=== PATIENT | male | born 1970 | race Caucasian/White ===

== ENCOUNTER 2016-10-13 19:22 | Observation (INO) ==
[2016-10-13 23:15] LABS: Basophils # 0.1 K/mcL (0.0-0.2); Basophils % 1.4 %; Eosinophils # 0.3 K/mcL (0.0-0.6); Eosinophils % 3.9 %; Hematocrit 36.2 % (37.5-50.1); Hemoglobin 12.6 g/dL (12.9-16.9); Immature Granulocytes % 0.2 % (0-4); Lymphocytes # 1.8 K/mcL (0.6-4.6); Lymphocytes % 27.6 %; Mean Corpuscular HGB Conc 34.8 g/dL (31.6-35.5); Mean Corpuscular Hemoglobin 30.4 pg (28.0-33.3); Mean Corpuscular Volume 87.4 fL (83.0-100.0); Mean Platelet Volume 10.7 fL (9.4-12.4); Monocytes # 0.8 K/mcL (0.0-1.3); Monocytes % 12.3 %; Neutrophils # 3.5 K/mcL (1.6-8.9); Platelet Count 130 K/mcL (140-400); Red Blood Count 4.14 M/mcL (4.19-5.50); Red Cell Distribution Width 14.4 % (11.5-14.5); Segmented Neutrophils % 54.6 %
[2016-10-13 23:16] LABS: VBG HCO3 30.6 mEq/L (21-27); VBG PH 7.37 pH Units (7.32-7.42)
[2016-10-13 23:25] LABS: Bilirubin,Urine Negative (Negative); Blood,Urine Negative (Negative); Clarity,Urine Clear (Clear); Color,Urine Yellow (Yellow); Glucose,Urine (UA) >=1000 mg/dL (Normal); Ketones,Urine Negative (Negative); Leukocyte Esterase,Urine Negative (Negative); Nitrite,Urine Negative (Negative); Protein,Urine Negative (Neg-Trace); Specific Gravity,Urine > 1.030 (1.010-1.025); Urobilinogen,Urine Normal (Normal)
[2016-10-13] MEDS ORDERED: 0.9 % Sodium Chloride 1,000 ML IVC ONE (23:25)
[2016-10-13 23:29] LABS: Albumin 3.7 g/dL (3.5-5.0); Albumin/Globulin Ratio 0.9 (1.1-2.2); Bilirubin,Total 1.2 mg/dL (0.2-1.2); Calcium 9.8 mg/dL (8.6-10.8); Globulin 4.1 g/dL (2.4-3.5); Potassium 4.2 mEq/L (3.5-4.5); Total Protein 7.8 g/dL (6.0-8.3)
--- NOTE | 2016-10-13 23:47 | Emergency Department Note ---
Disposition Clinical Impression: Hyperammonemia, Hyperglycemia Altered mental status Qualifiers: Altered mental status type: unspecified Qualified Code(s): R41.82 - Altered mental status, unspecified Disposition: Admitted As Inpatient Condition: Fair Time of Disposition: 01:04 General Adult HPI - General Chief complaint: ED General Medical Stated complaint: blood glucose high Time Seen by Provider: 10/13/16 22:31 Source: patient Mode of arrival: ambulatory Limitations: no limitations Nursing Notes Reviewed: Yes Vital Signs Reviewed: Yes - History of Present Illness HPI Narrative: Patient is a 46-year-old male with past medical history of hepatitis B, insulin dependent diabetes, hypertension, hyperlipidemia. He presents today due to multiple complaints. He has confusion that has progressively gotten worse over the past couple weeks. He also complains of new onset of blurred vision today. He also has complaints of high blood sugar readings at home over 500. Denies any chest pain, shortness of breath, numbness, tingling, weakness, belly pain. Denies any increased abdominal girth or lower extremity edema. Pain Scale: 5 - Related Data Home Medications Medication Instructions Recorded Confirmed Aripiprazole [Abilify] 2.5 mg PO DAILY 09/09/15 07/04/16 Atorvastatin Calcium [Lipitor] 20 mg PO HS 09/09/15 07/04/16 Cyclobenzaprine [Flexeril] 10 mg PO HS 09/09/15 07/04/16 EPINEPHrine [Epipen JR] 0.15 mg IJ ONCE PRN 09/09/15 10/14/16 Esomeprazole Magnesium [Nexium] 40 mg PO DAILY 09/09/15 07/04/16 Ketoconazole Shampoo [Nizoral 1 appl TP DAILY 09/09/15 07/04/16 Shampoo] LORazepam [Ativan] 1 mg PO HS 09/09/15 07/04/16 Levomilnacipran HCl [Fetzima] 120 mg PO HS 09/09/15 10/14/16 Metoprolol [Lopressor] 25 mg PO BID 09/09/15 07/04/16 Olmesartan Medoxomil [Benicar] 10 mg PO DAILY 09/09/15 07/04/16 Potassium Chloride [Klor-Con 20 meq PO BID 09/09/15 07/04/16 Sprinkle] Ropinirole HCl [Requip] 1 mg PO HS 09/09/15 07/04/16 SUMAtriptan [Imitrex] 50 mg PO DAILY PRN 09/09/15 07/04/16 Sennosides [Senna] 8.6 mg PO QID 09/09/15 07/04/16 Tamsulosin [Flomax] 0.4 mg PO HS 09/09/15 07/04/16 Testosterone Cypionate 200 mg IM 2XW 09/09/15 10/14/16 [Depo-Testosterone] Topiramate [Topamax] 50 mg PO BID 09/09/15 10/14/16 Cholecalciferol (D-3) [Vitamin D] 5,000 unit PO DAILY 06/11/16 07/04/16 Metformin HCl [Metformin HCl ER] 1,000 mg PO BID 06/11/16 07/04/16 Multivitamin [Multivitamins] 1 each PO DAILY 06/11/16 07/04/16 Sitagliptin Phosphate [Januvia] 50 mg PO DAILY 06/11/16 07/04/16 Morphine Sulfate 30 mg PO TID 07/04/16 07/04/16 Docusate [Colace] 100 mg PO PRN PRN 10/14/16 10/14/16 Insulin LISPRO [HumaLOG] 10 units SQ TIDWM 10/14/16 10/14/16 Lactulose 10 gm PO BID 10/14/16 10/14/16 Tamsulosin [Flomax] 0.4 mg PO DAILY 10/14/16 10/14/16 Tenofovir Disoproxil Fumarate 300 mg PO DAILY 10/14/16 10/14/16 [Viread] Previous Rx's Medication Instructions Recorded Insulin Glargine [Lantus] 25 unit SQ DAILY #1 vial 06/09/16 Allergies Allergy/AdvReac Type Severity Reaction Status Date / Time haloperidol [From Haldol] AdvReac Anxiety Verified 10/13/16 19:24 pregabalin [From Lyrica] AdvReac See Verified 10/13/16 19:24 Comments All systems ED: reviewed and negative except as stated. Past Medical History - Past Medical History Attestation: Yes The following information was validated with the patient. Medical history: Reports: arthritis, diabetes, GERD, hyperlipidemia, hypertension, migraine, osteoporosis, other Surgical history: Reports: orthopedic, other, other Psychiatric history: Reports: anxiety, depression, panic disorder - Social History Smoking Status: Unknown if ever smoked Smokeless Tobacco Status: No Alcohol use: Reports: rarely Drug use: Reports: none Physical Exam - General Limitations: no limitations General appearance: alert, in no apparent distress, other (Mildly confused on exam) - Head Head exam: atraumatic, normocephalic, normal inspection - Eye Eye exam: Present: normal appearance, PERRL, EOMI - ENT ENT exam: normal exam, normal oropharynx, mucous membranes moist - Neck Neck exam: Present: normal inspection, full ROM, trachea midline - Chest Chest inspection: Present: normal inspection, symmetric chest wall rise - Respiratory Respiratory exam: Present: normal lung sounds bilaterally - Cardiovascular Cardiovascular exam: Present: normal rhythm, tachycardia, normal heart sounds - Abdominal Exam Abdominal exam: Present: soft, Non-Tender, distention (mild distention). Absent : tenderness, guarding, rebound, rigidity - Extremities Exam Extremities exam: Present: normal inspection, full ROM. Absent: tenderness, pedal edema - Back Exam Back exam: Present: normal inspection, full ROM. Absent: tenderness - Neurological Exam Neurological exam: Present: alert, oriented X3, CN II-XII intact. Absent: motor sensory deficit - Psychiatric Psychiatric exam: Present: normal mood, flat affect - Skin Skin exam: Present: warm, dry, intact, normal color Course Course Narrative: Mildly hypertensive and mildly tachycardic on presentation. The rest of the vitals were within normal limits. Blood sugar here is in the 500s. Multiple concerns at this point. Patient is on lactulose at home for high ammonia levels. He could have hyperammonemia which is causing some of his symptoms. Blood sugar being high could also cause him to be confused and have blurred vision. Also any intracranial abnormality could be causing confusion and blurred vision with a new onset just to arrival. We will obtain DKA workup, ammonia levels, basic labs, CT head. Fluids started. 00:[address] negative. labs show hyperammonemia, hyperglycemia. Normal potassium. Patient is not acidotic. Concern for altered mental status due to hypoglycemia and hyperammonemia. We will admit the patient for further care. Patient has been given 1 L normal saline and 10 units of insulin. We will continue to monitor insulin and give more fluids. Gave lactulose for hyperammonemia Head CT 10/13/16 23:44 IMPRESSION: No acute intracranial abnormality. D/ / Himanshu Kraus MD / Himanshu Kraus MD Interpreting Provider: Himanshu Kraus MD Vital Signs Temperature 97.9 F 10/13/16 19:24 Pulse Rate 108 10/13/16 19:24 Respiratory Rate 18 10/13/16 19:24 Blood Pressure 155/92 10/13/16 19:24 O2 Sat by Pulse Oximetry 96 10/13/16 19:24 Temperature 98.2 F 10/14/16 02:11 Pulse Rate 98 10/14/16 02:11 Respiratory Rate 16 10/14/16 02:11 Blood Pressure 135/78 10/14/16 02:11 O2 Sat by Pulse Oximetry 95 10/14/16 02:11 Oxygen Delivery Oxygen Delivery Room Air Medical Decision Making - MDM Narrative Medical decision making narrative: Mildly hypertensive and mildly tachycardic on presentation. The rest of the vitals were within normal limits. Blood sugar here is in the 500s. Multiple concerns at this point. Patient is on lactulose at home for high ammonia levels. He could have hyperammonemia which is causing some of his symptoms. Blood sugar being high could also cause him to be confused and have blurred vision. Also any intracranial abnormality could be causing confusion and blurred vision with a new onset just to arrival. We will obtain DKA workup, ammonia levels, basic labs, CT head. Fluids started. 00:[address] negative. labs show hyperammonemia, hyperglycemia. Normal potassium. Patient is not acidotic. Concern for altered mental status due to hypoglycemia and hyperammonemia. We will admit the patient for further care. Patient has been given 1 L normal saline and 10 units of insulin. We will continue to monitor insulin and give more fluids. Gave lactulose for hyperammonemia - Medical Records Medical records reviewed: Yes I reviewed the patient's medical records. - Lab Data Lab results reviewed: Yes I reviewed the patient's lab results. Result diagrams: 10/13/16 23:05 10/13/16 23:05 Lab Results 10/13/16 10/13/16 10/13/16 Range/Units 19:28 19:29 23:05 WBC 6.3 (4.3-11.1) K/mcL RBC 4.14 L (4.19-5.50) M/mcL Hgb 12.6 L (12.9-16.9) g/dL Hct 36.2 L (37.5-50.1) % MCV 87.4 (83.0-100.0) fL MCH 30.4 (28.0-33.3) pg MCHC 34.8 (31.6-35.5) g/dL RDW 14.4 (11.5-14.5) % Plt Count 130 L (140-400) K/mcL MPV 10.7 (9.4-12.4) fL Immature Gran % 0.2 (0-4) % Seg Neutrophils % 54.6 % Lymphocytes % 27.6 % Monocytes % 12.3 % Eosinophils % 3.9 % Basophils % 1.4 % Neutrophils # 3.5 (1.6-8.9) K/mcL Lymphocytes # 1.8 (0.6-4.6) K/mcL Monocytes # 0.8 (0.0-1.3) K/mcL Eosinophils # 0.3 (0.0-0.6) K/mcL Basophils # 0.1 (0.0-0.2) K/mcL VBG pH (7.32-7.42) pH Units VBG pCO2 (41-51) mmHg VBG pO2 (25-40) mmHg VBG HCO3 (21-27) mEq/L Sodium (136-145) mEq/L Potassium (3.5-4.5) mEq/L Chloride (98-109) mEq/L Carbon Dioxide (19-29) mEq/L BUN (8-26) mg/dL Creatinine (0.72-1.25) mg/dL Est GFR ( Amer) (> 60) Est GFR (Non-Af Amer) (> 60) BUN/Creatinine Ratio (6-26) Glucose (70-99) mg/dL POC Glucose 495 H* 504 H* (58-89) Calculated Osmolality (280-300) Lactic Acid (0.5-2.2) mmol/L Calcium (8.6-10.8) mg/dL Total Bilirubin (0.2-1.2) mg/dL AST (5-34) Units/L ALT (0-55) Units/L Alkaline Phosphatase (38-126) Units/L Ammonia (18-72) mcmol/L Serum Total Protein (6.0-8.3) g/dL Albumin (3.5-5.0) g/dL Globulin (2.4-3.5) g/dL Albumin/Globulin Ratio (1.1-2.2) Beta-Hydroxybutyric Acd (0.02-0.27) mmol/L Urine Color (Yellow) Urine Clarity (Clear) Urine pH (5.0-8.0) pH Units Ur Specific [place] (1.010-1.025) Urine Protein (Neg-Trace) mg/dL Urine Glucose (UA) (Normal) mg/dL Urine Ketones (Negative) mg/dL Urine Blood (Negative) Urine Nitrite (Negative) Urine Bilirubin (Negative) Urine Urobilinogen (Normal) mg/dL Ur Leukocyte Esterase (Negative) Ur Culture Indicated? (NO) 10/13/16 10/13/16 10/13/16 Range/Units 23:05 23:05 23:05 WBC (4.3-11.1) K/mcL RBC (4.19-5.50) M/mcL Hgb (12.9-16.9) g/dL Hct (37.5-50.1) % MCV (83.0-100.0) fL MCH (28.0-33.3) pg MCHC (31.6-35.5) g/dL RDW (11.5-14.5) % Plt Count (140-400) K/mcL MPV (9.4-12.4) fL Immature Gran % (0-4) % Seg Neutrophils % % Lymphocytes % % Monocytes % % Eosinophils % % Basophils % % Neutrophils # (1.6-8.9) K/mcL Lymphocytes # (0.6-4.6) K/mcL Monocytes # (0.0-1.3) K/mcL Eosinophils # (0.0-0.6) K/mcL Basophils # (0.0-0.2) K/mcL VBG pH 7.37 (7.32-7.42) pH Units VBG pCO2 53 H (41-51) mmHg VBG pO2 45 H (25-40) mmHg VBG HCO3 30.6 H (21-27) mEq/L Sodium 135 L (136-145) mEq/L Potassium 4.2 (3.5-4.5) mEq/L Chloride 98 (98-109) mEq/L Carbon Dioxide 25 (19-29) mEq/L BUN 17 (8-26) mg/dL Creatinine 1.66 H (0.72-1.25) mg/dL Est GFR ( Amer) 54 L (> 60) Est GFR (Non-Af Amer) 44 L (> 60) BUN/Creatinine Ratio 10 (6-26) Glucose 525 H* (70-99) mg/dL POC Glucose (58-89) Calculated Osmolality 305 H (280-300) Lactic Acid 2.1 (0.5-2.2) mmol/L Calcium 9.8 (8.6-10.8) mg/dL Total Bilirubin 1.2 (0.2-1.2) mg/dL AST 52 H (5-34) Units/L ALT 91 H (0-55) Units/L Alkaline Phosphatase 196 H (38-126) Units/L Ammonia (18-72) mcmol/L Serum Total Protein 7.8 (6.0-8.3) g/dL Albumin 3.7 (3.5-5.0) g/dL Globulin 4.1 H (2.4-3.5) g/dL Albumin/Globulin Ratio 0.9 L (1.1-2.2) Beta-Hydroxybutyric Acd (0.02-0.27) mmol/L Urine Color (Yellow) Urine Clarity (Clear) Urine pH (5.0-8.0) pH Units Ur Specific [place] (1.010-1.025) Urine Protein (Neg-Trace) mg/dL Urine Glucose (UA) (Normal) mg/dL Urine Ketones (Negative) mg/dL Urine Blood (Negative) Urine Nitrite (Negative) Urine Bilirubin (Negative) Urine Urobilinogen (Normal) mg/dL Ur Leukocyte Esterase (Negative) Ur Culture Indicated? (NO) 10/13/16 10/13/16 10/13/16 Range/Units 23:05 23:15 23:44 WBC (4.3-11.1) K/mcL RBC (4.19-5.50) M/mcL Hgb (12.9-16.9) g/dL Hct (37.5-50.1) % MCV (83.0-100.0) fL MCH (28.0-33.3) pg MCHC (31.6-35.5) g/dL RDW (11.5-14.5) % Plt Count (140-400) K/mcL MPV (9.4-12.4) fL Immature Gran % (0-4) % Seg Neutrophils % % Lymphocytes % % Monocytes % % Eosinophils % % Basophils % % Neutrophils # (1.6-8.9) K/mcL Lymphocytes # (0.6-4.6) K/mcL Monocytes # (0.0-1.3) K/mcL Eosinophils # (0.0-0.6) K/mcL Basophils # (0.0-0.2) K/mcL VBG pH (7.32-7.42) pH Units VBG pCO2 (41-51) mmHg VBG pO2 (25-40) mmHg VBG HCO3 (21-27) mEq/L Sodium (136-145) mEq/L Potassium (3.5-4.5) mEq/L Chloride (98-109) mEq/L Carbon Dioxide (19-29) mEq/L BUN (8-26) mg/dL Creatinine (0.72-1.25) mg/dL Est GFR ( Amer) (> 60) Est GFR (Non-Af Amer) (> 60) BUN/Creatinine Ratio (6-26) Glucose (70-99) mg/dL POC Glucose (58-89) Calculated Osmolality (280-300) Lactic Acid (0.5-2.2) mmol/L Calcium (8.6-10.8) mg/dL Total Bilirubin (0.2-1.2) mg/dL AST (5-34) Units/L ALT (0-55) Units/L Alkaline Phosphatase (38-126) Units/L Ammonia 102 H (18-72) mcmol/L Serum Total Protein (6.0-8.3) g/dL Albumin (3.5-5.0) g/dL Globulin (2.4-3.5) g/dL Albumin/Globulin Ratio (1.1-2.2) Beta-Hydroxybutyric Acd 0.36 H (0.02-0.27) mmol/L Urine Color Yellow (Yellow) Urine Clarity Clear (Clear) Urine pH 6.0 (5.0-8.0) pH Units Ur Specific [place] > 1.030 H (1.010-1.025) Urine Protein Negative (Neg-Trace) mg/dL Urine Glucose (UA) >=1000 H (Normal) mg/dL Urine Ketones Negative (Negative) mg/dL Urine Blood Negative (Negative) Urine Nitrite Negative (Negative) Urine Bilirubin Negative (Negative) Urine Urobilinogen Normal (Normal) mg/dL Ur Leukocyte Esterase Negative (Negative) Ur Culture Indicated? NO (NO) - Radiology Data Radiology results reviewed: Yes I reviewed the patient's radiology results. Head CT 10/13/16 23:44 IMPRESSION: No acute intracranial abnormality. D/ / Himanshu Kraus MD / Himanshu Kraus MD Interpreting Provider: Himanshu Kraus MD S.B.AMayda - S.PamAMayda Situation: Demographics, MOA Background: Presenting Complaint, Relevant PMH, Meds, & Allergies Assessment: Vital Signs, Course and respsone to treatment, Exam Concerns, Patient/Family Expectation, Pertinant Lab Results, Outstanding Labs Recommendation: Barrier(s) to disposition, Recommendation based on pending studies, treatments, or consults S.[email or web address].RRiley Report Given to: Dr. Shoshana AbrahamBBishop Repor Time: 01:05 Attestation Statement - Attestation Attestation: Dr. Hogan note: Patient seen in conjunction with resident Dr. Zarate; please see his chart for complete documentation. I spent [id number] time with the patient and I agree with the patient's treatment and disposition. Patient had improvement of his mental status prior to admission after IV fluids. Poorly controlled diabetic with an elevated ammonia noted earlier today as an outpatient. To rule out symptomatic to go home at this time but improved at the time of admission. Ammonia level has been reviewed in the er
[2016-10-14] MEDS ORDERED: Insulin Human Regular 10 UNIT in 0.9 % Sodium Chloride 10 ML IV ONE (00:54)
[2016-10-14] MEDS ORDERED: 0.9 % Sodium Chloride 1,000 ML IVC ONE (00:57)
[2016-10-14] MEDS ORDERED: Lactulose Oral Soln 20 GM/30 ML UDC PO ONE (01:01)
[2016-10-14] MEDS ORDERED: Dextrose Gel 15 GM PO PRN ×6 (06:25→10:09)
[2016-10-14] MEDS ORDERED: D5% in Water 1,000 ML IV PRN ×3 (06:25→10:09)
[2016-10-14] MEDS ORDERED: *HR* Dextrose 50 % in Water (Syg) 50 ML SYRINGE IVP PRN ×3 (06:25→10:09)
[2016-10-14] MEDS ORDERED: 0.9 % Sodium Chloride 1,000 ML IVC SCH (06:30)
[2016-10-14 07:09] LABS: Alanine Aminotransferase 79 Units/L (0-55); Albumin 3.1 g/dL (3.5-5.0); Albumin/Globulin Ratio 0.9 (1.1-2.2); Alkaline Phosphatase 179 Units/L (38-126); Aspartate Amino Transferase 46 Units/L (5-34); BUN/Creatinine Ratio 12 (6-26); Blood Urea Nitrogen 15 mg/dL (8-26); Calcium 9.1 mg/dL (8.6-10.8); Carbon Dioxide 23 mEq/L (19-29); Chloride 104 mEq/L (98-109); Globulin 3.6 g/dL (2.4-3.5); Glucose 383 mg/dL (70-99); Magnesium 1.1 mg/dL (1.6-2.6); Osmolality,Calculated 303 (280-300); Potassium 3.7 mEq/L (3.5-4.5); Sodium 138 mEq/L (136-145); Total Protein 6.7 g/dL (6.0-8.3); eGFR For African Americans > 60 (> 60); eGFR For Non-African Americans 59 (> 60)
[2016-10-14] MEDS: Insulin LISPRO 300 UNITS/3 ML VIAL SQ SCH ×3 (08:08→16:31)
[2016-10-14] MEDS: Lactulose Oral Soln 20 GM/30 ML UDC PO SCH ×4 (08:09→21:01)
[2016-10-14] MEDS ORDERED: Acetaminophen 325 MG TABLET PO PRN (10:05)
[2016-10-14] MEDS ORDERED: Ondansetron 4 MG/2 ML VIAL IVP PRN (10:05)
[2016-10-14] MEDS ORDERED: Naloxone 0.4 MG/ML INJ IVP PRN (10:05)
--- NOTE | 2016-10-14 10:13 | Internal Med History&Physical ---
Date of Encounter: 10/14/16 Time of Encounter: 10:12 Assessment and Plan (1) Hypomagnesemia Current visit: Yes Status: Acute Likely related to diuretic use and poor oral intake. Supplement with oral magnesium oxide and IV magnesium sulfate, recheck serum magnesium in a.m. (2) Acute kidney injury Current visit: Yes Status: Acute Likely related to hyperglycemia and dehydration. Continue IV hydration, serum creatinine noted to be improving. Continue to monitor. 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 Patient had liver biopsy done, confirming cirrhosis a few months back. Continue scheduled lactulose for at least 2-3 soft bowel movements per day. Mental status noted to be improving. (4) Hyperglycemia Current visit: Yes Status: Acute Unclear etiology. Monitor blood sugars closely and continue Accu-Chek blood glucose monitoring every 4 hours for now. Continue basal bolus insulin regimen. Diabetic diet. Check hemoglobin A1c. (5) Cirrhosis Current visit: Yes Status: Chronic Qualifiers: Hepatic cirrhosis type: unspecified hepatic cirrhosis Ascites presence: without ascites Qualified Code(s): K74.60 - Unspecified cirrhosis of liver (6) Diabetes mellitus Current visit: Yes Status: Chronic Plan as above. Qualifiers: Diabetes mellitus type: type 2 Diabetes mellitus complication status: with hyperglycemia Diabetes mellitus fci insulin use: with fci use Qualified Code(s): E11.65 - Type 2 diabetes mellitus with hyperglycemia; Z79.4 - detention (current) use of insulin (7) Hepatitis B Current visit: Yes Status: Chronic continue Viread; follows with GI as outpatient; Qualifiers: Viral hepatitis chronicity: chronic Hepatic coma status: without hepatic coma Hepatitis delta agent presence: without delta-agent Qualified Code(s): B18.1 - Chronic viral hepatitis B without delta-agent (8) Hypertension Current visit: Yes Status: Chronic Qualifiers: Hypertension type: essential hypertension Qualified Code(s): I10 - Essential (primary) hypertension (9) Obesity (BMI 30-39.9) Current visit: Yes Status: Chronic Internal Medicine - H&P: HPI Chief complaint: Confusion, blurred vision Admitted From: Emergency Dept Plans for Post Hospital Care: Home History of present illness: Mr. Garner is a 46 year old male with history of diabetes, hepatitis B, cirrhosis was brought in by family with complaints of confusion and blurred vision. Patient has had a similar admission about 3 months back at our facility with uncontrolled blood sugars. He is noted to be alert and oriented at this time and is able to provide history, although he seems to be depressed and anxious. Patient reports being compliant to his home dose of insulin with no recent dietary changes but reports that his blood sugars have been increasing for the last 7-10 days. Patient has blood sugar log with him, which shows that his sugars have been uncontrolled in June 2016 when he was hospitalized with confusion and hyperglycemia, and discharged with recommendations to use his Lantus regularly and to adjust it according to his blood sugars. He has been doing this and his sugars were better controlled subsequent to the hospitalization, however for the last 2 weeks blood sugars are constantly in high 200s to high 300s with occasional 400-500. Patient reports that he is getting more forgetful, confused and disoriented for the last few days associated with blurred vision and not feeling well. Denies nausea, vomiting, diarrhea, chest pain or shortness of breath. No focal weakness or paresthesias reported. No fever or chills, no recent respiratory or urinary tract infections, no recent antibiotic use. Past Med Surg Social Fam HX - Past Medical History Medical history: arthritis, cirrhosis (Hepatitis B), diabetes, GERD, hyperlipidemia, hypertension, migraine, osteoporosis, other Psychiatric history: anxiety, depression, panic disorder - Past Surgical History Surgical History: cholecystectomy, orthopedic, other, other (Cervical and lumbar spinal surgeries) - Social History Smoking Status: Former smoker Smokeless Tobacco Status: No Alcohol use: occasionally Drug use: none Occupational status: disabled Current living situation: Home, With Family Activity Level: Independent ambulation Recent Out of Country Travel Within the Last 8 Weeks: No Exposure or Possible Exposure to Illness During Travel: No - Family History Mother Living Status: Still Living Hx Family Endocrine Disorder: Yes Father Living Status: Still Living Hx Family Cancer: Yes (lymphoma) Internal Medicine - H&P: Meds Aripiprazole [Abilify] 2.5 mg PO DAILY 09/09/15 [History] Atorvastatin Calcium [Lipitor] 20 mg PO HS 09/09/15 [History] Cyclobenzaprine [Flexeril] 10 mg PO HS 09/09/15 [History] EPINEPHrine [Epipen JR] 0.15 mg IJ ONCE PRN 09/09/15 [History] Esomeprazole Magnesium [Nexium] 40 mg PO DAILY 09/09/15 [History] Ketoconazole Shampoo [Nizoral Shampoo] 1 appl TP DAILY 09/09/15 [History] LORazepam [Ativan] 1 mg PO HS 09/09/15 [History] Levomilnacipran HCl [Fetzima] 120 mg PO HS 09/09/15 [History] Olmesartan Medoxomil [Benicar] 10 mg PO DAILY 09/09/15 [History] Potassium Chloride [Klor-Con Sprinkle] 20 meq PO BID 09/09/15 [History] Ropinirole HCl [Requip] 1 mg PO HS 09/09/15 [History] SUMAtriptan [Imitrex] 50 mg PO DAILY PRN 09/09/15 [History] Sennosides [Senna] 8.6 mg PO QID 09/09/15 [History] Testosterone Cypionate [Depo-Testosterone] 200 mg IM Q2W 09/09/15 [History] Topiramate [Topamax] 50 mg PO BID 09/09/15 [History] Cholecalciferol (D-3) [Vitamin D] 5,000 unit PO DAILY 06/11/16 [History] Multivitamin [Multivitamins] 1 each PO DAILY 06/11/16 [History] Sitagliptin Phosphate [Januvia] 50 mg PO DAILY 06/11/16 [History] Morphine Sulfate 30 mg PO TID 07/04/16 [History] Docusate [Colace] 100 mg PO PRN PRN 10/14/16 [History] Insulin Glargine [Lantus] 25 unit SQ HS 10/14/16 [History] Insulin LISPRO [HumaLOG] 0 units SQ TIDWM 10/14/16 [History] Lactulose 10 gm PO BID 10/14/16 [History] Metoprolol XL (24 HR) Succ [Toprol XL] 25 mg PO BID 10/14/16 [History] Tamsulosin [Flomax] 0.4 mg PO DAILY 10/14/16 [History] Tenofovir Disoproxil Fumarate [Viread] 300 mg PO DAILY 10/14/16 [History] Allergies haloperidol [From Haldol] Adverse Reaction (Verified 10/13/16 19:24) Anxiety Panick attacks. pregabalin [From Lyrica] Adverse Reaction (Verified 10/13/16 19:24) See Comments Lowered kidney function. All Systems PM: A 10-system review of systems was performed and is negative for pertinent findings except as documented above in the HPI. - Constitutional Constitutional: malaise, no chills, no fever(s), no night sweats - EENT Eyes: blurry vision, change in vision Ears: no ear discharge, no ear pain, no tinnitus Nose, mouth and throat: no dysphagia, no nasal discharge, no neck pain, no sore throat - Cardiovascular Cardiovascular ROS IM: lightheadedness, no chest pain, no diaphoresis, no dyspnea, no palpitations, no syncope - Respiratory Respiratory: no cough, no dyspnea, no wheezing, no excessive phlegm production - Gastrointestinal Gastrointestinal: no abdominal pain, no diarrhea, no hematemesis, no hematochezia, no melena, no nausea, no vomiting - Musculoskeletal Musculoskeletal ROS IM: no numbness, no tingling - Integumentary Integumentary IM: no rash, no unusual bruising - Neurological Neurological ROS: confusion, no convulsions, no focal weakness, no numbness, no tingling, no tremor(s) - Hematologic/Lymphatic Hematologic/Lymphatic: no easy bruising - Constitutional Vitals: Temp Pulse Resp BP Pulse Ox 98 F 97 14 131/77 92 L 10/14/16 07:13 10/14/16 08:15 10/14/16 07:13 10/14/16 07:13 10/14/16 07:13 General appearance: Present: A&O X 3, answers questions appropriately - Head Head exam: Present: atraumatic, normocephalic - Neck Neck exam general surgery: Present: supple, trachea midline. Absent: lymphadenopathy - Respiratory Respiratory exam: Present: CTAB. Absent: accessory muscle use, rales, rhonchi, wheezes - Cardiovascular Cardiovascular exam: Present: RRR, +S1, +S2, tachycardia. Absent: diastolic murmur, gallop, rubs, systolic murmur - GI/Abdominal GI/Abdominal exam: Present: normal bowel sounds, soft, no peritoneal signs. Absent: distended, tenderness - Extremities Exam Extremities exam: Present: full ROM, warm, radial pulses palpable and symetrical. Absent: calf tenderness, cyanotic, pedal edema - Neurological Exam Neurological exam: Present: CN II-XII intact, oriented X3, no focal deficits. Absent: pronater drift, facial droop, speech deficit - Psychiatric Psychiatric exam: Present: anxious - Skin Skin exam: Present: dry, intact Internal Med - H&P Results - Labs CBC & Chem 7: 10/13/16 23:05 10/14/16 06:43 Labs: BMP 10/14/16 06:43 Sodium 138 Potassium 3.7 Chloride 104 Carbon Dioxide 23 BUN 15 Creatinine 1.30 H Glucose 383 H Calcium 9.1 Liver Function 10/14/16 Range/Units 06:43 Total Bilirubin 1.0 (0.2-1.2) mg/dL AST 46 H (5-34) Units/L ALT 79 H (0-55) Units/L Alkaline Phosphatase 179 H (38-126) Units/L Albumin 3.1 L (3.5-5.0) g/dL
[2016-10-14] MEDS: 0.9 % Sodium Chloride 1,000 ML IVC SCH ×2 (10:53→21:03)
[2016-10-14 11:09] LABS: Hemoglobin A1C 10.7 %
[2016-10-14] MEDS ORDERED: Insulin DETEMIR 100 UNIT/ML X5UNITS SQ ONE (12:05)
[2016-10-14] MEDS: *HR* Morphine Sulfate SR (12 HR) 30 MG TABLET.ER PO SCH ×2 (13:51→21:01)
[2016-10-14] MEDS ORDERED: *HR* Morphine Sulfate SR (12 HR) 30 MG TABLET.ER PO SCH (16:00)
[2016-10-14] MEDS ORDERED: Magnesium Sulfate 2 GM in D5% in Water 100 ML IVPB ONE (17:36)
[2016-10-14] MEDS ORDERED: (Levomilnacipran Hcl [Fetzima] 120 MG) PO SCH (21:00)
[2016-10-14] MEDS ORDERED: Insulin LISPRO 300 UNITS/3 ML VIAL SQ SCH ×2 (21:00)
[2016-10-14] MEDS ORDERED: *HR* LORazepam 1 MG TABLET PO SCH (21:00)
[2016-10-14] MEDS ORDERED: rOPINIRole 1 MG TABLET PO SCH (21:00)
[2016-10-14] MEDS: Topiramate 25 MG TABLET PO SCH (21:01)
[2016-10-14] MEDS: Magnesium Oxide 400 MG TABLET PO SCH (21:02)
[2016-10-14] MEDS: Insulin DETEMIR 100 UNIT/ML X5UNITS SQ SCH (21:30)
[2016-10-15 04:49] LABS: Basophils # 0.1 K/mcL (0.0-0.2); Basophils % 0.9 %; Eosinophils # 0.3 K/mcL (0.0-0.6); Eosinophils % 4.1 %; Hematocrit 32.1 % (37.5-50.1); Hemoglobin 11.1 g/dL (12.9-16.9); Immature Granulocytes % 0.2 % (0-4); Lymphocytes # 1.8 K/mcL (0.6-4.6); Mean Corpuscular HGB Conc 34.6 g/dL (31.6-35.5); Mean Corpuscular Hemoglobin 31.1 pg (28.0-33.3); Mean Corpuscular Volume 89.9 fL (83.0-100.0); Mean Platelet Volume 10.4 fL (9.4-12.4); Monocytes # 0.9 K/mcL (0.0-1.3); Monocytes % 13.7 %; Neutrophils # 3.3 K/mcL (1.6-8.9); Platelet Count 118 K/mcL (140-400); Red Blood Count 3.57 M/mcL (4.19-5.50); Red Cell Distribution Width 14.7 % (11.5-14.5); Segmented Neutrophils % 52.1 %
[2016-10-15 05:01] LABS: BUN/Creatinine Ratio 10 (6-26); Blood Urea Nitrogen 12 mg/dL (8-26); Calcium 8.8 mg/dL (8.6-10.8); Carbon Dioxide 23 mEq/L (19-29); Chloride 105 mEq/L (98-109); Glucose 292 mg/dL (70-99); Magnesium 1.7 mg/dL (1.6-2.6); Osmolality,Calculated 295 (280-300); Phosphorous 3.4 mg/dL (2.3-4.7); Potassium 3.5 mEq/L (3.5-4.5); Sodium 137 mEq/L (136-145); eGFR For African Americans > 60 (> 60); eGFR For Non-African Americans > 60 (> 60)
[2016-10-15] MEDS: *HR* Morphine Sulfate SR (12 HR) 30 MG TABLET.ER PO SCH ×2 (05:54→13:01)
[2016-10-15] MEDS: Magnesium Oxide 400 MG TABLET PO SCH (07:46)
[2016-10-15] MEDS: Lactulose Oral Soln 20 GM/30 ML UDC PO SCH ×2 (07:46→13:01)
[2016-10-15] MEDS: Topiramate 25 MG TABLET PO SCH (07:47)
[2016-10-15] MEDS: Insulin DETEMIR 100 UNIT/ML X5UNITS SQ SCH (07:47)
[2016-10-15] MEDS: Insulin LISPRO 300 UNITS/3 ML VIAL SQ SCH ×3 (08:03→15:24)
[2016-10-15] MEDS ORDERED: Tenofovir Disoproxil Fumarate 300 MG TABLET PO SCH (09:00)
[2016-10-15] MEDS ORDERED: ARIPiprazole 5 MG TABLET PO SCH (09:00)
[2016-10-15] MEDS ORDERED: Valsartan 80 MG TABLET PO SCH (09:00)
--- NOTE | 2016-10-15 12:57 | Discharge Summary ---
Date of Encounter: 10/15/16 Time of Encounter: 12:52 - Discharge Diagnosis (1) Hypomagnesemia Priority: Primary Status: Resolved (2) Acute kidney injury Priority: Primary Status: Resolved (3) Hyperammonemia Priority: Primary Status: Resolved (4) Hyperglycemia Priority: Primary Status: Acute (5) Cirrhosis Priority: Secondary Status: Chronic Qualifiers: Hepatic cirrhosis type: unspecified hepatic cirrhosis Ascites presence: without ascites Qualified Code(s): K74.60 - Unspecified cirrhosis of liver (6) Diabetes mellitus Priority: Secondary Status: Chronic Qualifiers: Diabetes mellitus type: type 2 Diabetes mellitus complication status: with hyperglycemia Diabetes mellitus nursing home insulin use: with nursing home use Qualified Code(s): E11.65 - Type 2 diabetes mellitus with hyperglycemia; Z79.4 - long term (current) use of insulin (7) Hepatitis B Priority: Secondary Status: Chronic Qualifiers: Viral hepatitis chronicity: chronic Hepatic coma status: without hepatic coma Hepatitis delta agent presence: without delta-agent Qualified Code(s): B18.1 - Chronic viral hepatitis B without delta-agent (8) Hypertension Priority: Secondary Status: Chronic Qualifiers: Hypertension type: essential hypertension Qualified Code(s): I10 - Essential (primary) hypertension (9) Obesity (BMI 30-39.9) Priority: Secondary Status: Chronic - Discharge Medications Home Medications: Aripiprazole [Abilify] 2.5 mg PO DAILY 09/09/15 [History] Atorvastatin Calcium [Lipitor] 20 mg PO HS 09/09/15 [History] Cyclobenzaprine [Flexeril] 10 mg PO HS 09/09/15 [History] EPINEPHrine [Epipen JR] 0.15 mg IJ ONCE PRN 09/09/15 [History] Esomeprazole Magnesium [Nexium] 40 mg PO DAILY 09/09/15 [History] Ketoconazole Shampoo [Nizoral Shampoo] 1 appl TP DAILY 09/09/15 [History] LORazepam [Ativan] 1 mg PO HS 09/09/15 [History] Levomilnacipran HCl [Fetzima] 120 mg PO HS 09/09/15 [History] Olmesartan Medoxomil [Benicar] 10 mg PO DAILY 09/09/15 [History] Potassium Chloride [Klor-Con Sprinkle] 20 meq PO BID 09/09/15 [History] Ropinirole HCl [Requip] 1 mg PO HS 09/09/15 [History] SUMAtriptan [Imitrex] 50 mg PO DAILY PRN 09/09/15 [History] Sennosides [Senna] 8.6 mg PO QID 09/09/15 [History] Testosterone Cypionate [Depo-Testosterone] 200 mg IM Q2W 09/09/15 [History] Topiramate [Topamax] 50 mg PO BID 09/09/15 [History] Cholecalciferol (D-3) [Vitamin D] 5,000 unit PO DAILY 06/11/16 [History] Multivitamin [Multivitamins] 1 each PO DAILY 06/11/16 [History] Sitagliptin Phosphate [Januvia] 50 mg PO DAILY 06/11/16 [History] Morphine Sulfate 30 mg PO TID 07/04/16 [History] Docusate [Colace] 100 mg PO PRN PRN 10/14/16 [History] Insulin LISPRO [HumaLOG] 0 units SQ TIDWM 10/14/16 [History] Lactulose 10 gm PO BID 10/14/16 [History] Metoprolol XL (24 HR) Succ [Toprol Xl] 25 mg PO BID 10/14/16 [History] Tamsulosin [Flomax] 0.4 mg PO DAILY 10/14/16 [History] Tenofovir Disoproxil Fumarate [Viread] 300 mg PO DAILY 10/14/16 [History] Insulin Glargine [Lantus] 35 unit SQ HS #500 unit 10/15/16 [Rx] Allergies/Adverse Reactions: Allergies haloperidol [From Haldol] Adverse Reaction (Verified 10/13/16 19:24) Anxiety Panick attacks. pregabalin [From Lyrica] Adverse Reaction (Verified 10/13/16 19:24) See Comments Lowered kidney function. Date of admission: 10/14/16 01:37 Primary care physician: Mateo Navas MD Consults: 10/14/16 06:25 Consult to Real Estate Assessor [CONS] Routine Comment: Discharging clinician: Melida Espinal Anticipated date of discharge: 10/15/16 - Patient Status Disposition: Home, Self-Care Condition: Good Functional capacity at discharge: independent ambulation Overall status at discharge: patient is back to baseline - Discharge Instructions Instructions: Diabetes Mellitus Type 2 in Adults (DC), Diabetic Hyperglycemia ( DC) Follow Up With: Mateo Navas MD [Primary Care Provider] - 10/20/16 2:15 pm - Diet and Activity Activity: resume usual activities as tolerated Diet: diabetic diet, low fat, low cholesterol, low salt diet Hospital course: Mr. Garner is a 46 year old male with the above medical problems, admitted with headache, blurred vision and not feeling well. He was noted to have hyperglycemia with no evidence of ketoacidosis or hyperglycemic coma at the time of admission. He had a similar admissions in the past. He reports compliance with basal bolus insulin regimen at home and is able to show me how well maintained without with his before meals at bedtime blood sugars and insulin dosing. He was started on increased dose of basal insulin along with sliding scale insulin and diabetic diet in the hospital and his blood sugars somewhat improved to low 200s. Hemoglobin A1c was noted to be 10.7%. He was seen by natural history collections curator and received education regarding portion control, diabetic meal planning and verbalized understanding. His symptoms significantly improved by the next day and he is medically stable for discharge. He is also encouraged to follow-up with psychiatry as he does have underlying bipolar disorder, anxiety and depression and suspicious medical compliance due to this. After the patient was discharged, I have received a phone call from his pharmacy noting that he has not filled his prescription for Lantus, provided by his primary care provider since July 2016. I have attempted to call his primary care doctor without success. However, patient does have a follow-up appointment with his primary care doctor and he was encouraged to keep that appointment. - Time Spent with Patient Total time spent providing and/or coordinating discharge services: Greater than 30 minutes (45 min) - Constitutional Vitals: Temp Pulse Resp BP Pulse Ox 98.4 F 88 16 129/76 93 L 10/15/16 10:59 10/15/16 11:46 10/15/16 10:59 10/15/16 10:59 10/15/16 10:59 General appearance: Present: A&O X 3, answers questions appropriately - Respiratory Respiratory exam: Present: CTAB. Absent: accessory muscle use, rales, rhonchi, wheezes - Cardiovascular Cardiovascular exam: Present: RRR, +S1, +S2. Absent: diastolic murmur, gallop, rubs, systolic murmur
[2016-10-15 16:00] VITALS: BP 139/84
== END 2016-10-15 19:17 | disposition home or self-care (01) ==
LOC: 2NNU 19:22 → EMEROO 19:22 → SUATTDRO 10-14 01:37 → 2NNU 10-14 01:59
PROVIDERS: ADMIT Internal Medicine; ATTEND Internal Medicine